=== PATIENT | female | born 1985 | race Caucasian/White ===

== ENCOUNTER 2018-04-21 09:56 | Outpatient (CLI) | END 2018-04-21 12:13 | disposition home or self-care (01) ==

== ENCOUNTER 2018-04-24 10:51 | Outpatient (CLI) | END 2018-04-24 13:00 | disposition home or self-care (01) ==

== ENCOUNTER 2018-04-27 11:29 | Outpatient (CLI) | END 2018-04-27 13:30 | disposition home or self-care (01) ==

== ENCOUNTER 2018-05-17 19:10 | Outpatient (CLI) | END 2018-05-17 23:20 | disposition home or self-care (01) ==

== ENCOUNTER 2018-06-07 16:02 | Outpatient (CLI) | END 2018-06-07 17:45 | disposition home or self-care (01) ==

== ENCOUNTER 2018-06-15 17:07 | Outpatient (CLI) | END 2018-06-15 18:45 | disposition home or self-care (01) ==

== ENCOUNTER 2018-06-28 07:32 | Inpatient (IN) | END 2018-07-01 16:31 | disposition home or self-care (01) | DRG 807 ==